=== PATIENT | male | born 2000 | race Caucasian/White ===

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

== ENCOUNTER 2021-05-08 21:01 | Emergency (ER) | payer OTHER ==
[~2021-05-08] VITALS: Ht 170.2 cm; Wt 61.2 kg
[~2021-05-08 21:01] MED LIST changes: +NORCO 5-325 TA1 EACH PO
[2021-05-08] MEDS ORDERED: NOHOMEMEDICATIONS (22:04)
[2021-05-08 22:30] VITALS: BP 132/70
== END 2021-05-08 22:39 | disposition home or self-care (01) ==
LOC: ER 21:01
DX: S61.411A Laceration without foreign body of right hand, initial encounter (principal); W26.9XXA Contact with unspecified sharp object(s), initial encounter; Y93.89 Activity, other specified; Y92.89 Other specified places as the place of occurrence of the external cause; Y99.8 Other external cause status

== ENCOUNTER → 2021-05-20 | Emergency (ER) | payer OTHER ==
[~2021-05-20] VITALS: Ht 170.2 cm; Wt 76.2 kg
[~2021-05-20] MED LIST changes: +NOHOMEMEDICATIONS
[2021-05-20 16:21] VITALS: BP 126/80
== END ==
LOC: ER 16:15
DX: S61.411D Laceration without foreign body of right hand, subsequent encounter (principal); F90.9 Attention-deficit hyperactivity disorder, unspecified type; X58.XXXD Exposure to other specified factors, subsequent encounter